=== PATIENT | female | born 1950 | race Two or more races ===

== ENCOUNTER 2021-02-27 11:45 | Inpatient (IN) | payer OTHER ==
[~2021-02-27] VITALS: Ht 149.9 cm; Wt 64.9 kg
[2021-02-27] MEDS ORDERED: DIOVAN HCT 1601 EAC1 PO (14:53)
[2021-02-27] MEDS ORDERED: TYLENOL ARTHRI650 MG PO (14:53)
[2021-02-27] MEDS ORDERED: SYNTHROID75 MCG PO (14:53)
[2021-02-27] MEDS ORDERED: METFORMIN HCL850 M1 PO (14:53)
[2021-03-06] MEDS ORDERED: GABAPENTIN300 M2 (08:18)
[2021-03-06] MEDS ORDERED: FAMOTIDINE20 MG (08:18)
[2021-03-06] MEDS ORDERED: VALACYCLOVIR1000 MG (08:19)
[2021-03-06] MEDS ORDERED: FEXOFENADINE H180 MG (08:19)
[2021-03-09] MEDS ORDERED: PERCOCET 5-3251 EACH PO (11:35)
[2021-03-09] MEDS ORDERED: ACID REDUCER20 M1 PO (11:35)
== END 2021-03-09 15:23 | disposition home or self-care (01) | DRG 330 ==
LOC: SURG 03-06 05:50 → O/R 03-06 05:50 → SURH 03-06 11:45 → SURG 03-06 13:48
PROVIDERS: ADMIT Surgery; ATTEND Surgery
PROC: 0DBN4ZZ Excision of Sigmoid Colon, Percutaneous Endoscopic Approach (ICD-10-PCS; 2021-03-06)
PROC: 0DJD8ZZ Inspection of Lower Intestinal Tract, Via Natural or Artificial Opening Endoscopic (ICD-10-PCS; 2021-03-06)
PROC: 0DTP4ZZ Resection of Rectum, Percutaneous Endoscopic Approach (ICD-10-PCS; principal; 2021-03-06 12:45)
DX: K57.32 Diverticulitis of large intestine without perforation or abscess without bleeding (principal); K55.8 Other vascular disorders of intestine; E03.8 Other specified hypothyroidism; E11.9 Type 2 diabetes mellitus without complications; I11.9 Hypertensive heart disease without heart failure; D64.9 Anemia, unspecified; E66.9 Obesity, unspecified